=== PATIENT | female | born 1935 | race Caucasian/White ===

== ENCOUNTER 2018-08-04 23:19 | Inpatient (IN) | payer MEDICARE ==
[2018-08-05] MEDS ORDERED: HYDROcodone/Acetaminophen 5/325 mg Tablet ONE (00:56)
[2018-08-05] MEDS ORDERED: Ketorolac Tromethamine 30 MG/ML VIAL ONE (00:56)
[2018-08-05 04:27] VITALS: BMI 17.9
[2018-08-05] MEDS ORDERED: Morphine 2 MG/ML SYRINGE SLOW IVP PRN (04:55)
[2018-08-05] MEDS ORDERED: Ondansetron PF 4 MG/2 ML Vial IVP PRN ×2 (04:56→07:43)
[2018-08-05] MEDS ORDERED: Acetaminophen 325 MG TAB PO PRN (04:56)
[2018-08-05] MEDS: traMADol HCl 50 MG TAB PO PRN (05:29)
[2018-08-05] MEDS ORDERED: Bisacodyl 5 MG TAB PO PRN (07:43)
[2018-08-05] MEDS ORDERED: Senokot S 8.6-50 MG TAB PO PRN ×2 (07:43)
[2018-08-05] MEDS ORDERED: HYDROcodone/Acetaminophen 5/325 mg Tablet PO PRN ×2 (07:43)
[2018-08-05] MEDS ORDERED: Calcium Carbonate 500 MG ChewTAB PO PRN (07:43)
[2018-08-05] MEDS ORDERED: Nitroglycerin 0.4 MG TAB (25 Tab Bottle) SL PRN (07:43)
[2018-08-05] MEDS ORDERED: Ondansetron ODT 4 MG TAB PO PRN (07:43)
[2018-08-05] MEDS ORDERED: Benzonatate 100 MG CAP PO PRN (07:43)
[2018-08-05] MEDS ORDERED: Sodium Chloride 0.65% Nasal 44 ML BOT EA NARE PRN (07:43)
[2018-08-05 08:33] LABS: #Basophils 0.1 thou/uL (0.0-0.2); #Eosinphils 0.2 thou/uL (0.0-0.7); #Lymphocytes 1.2 thou/uL (1.20-3.40); #Monocytes 0.6 thou/uL (0.11-0.59); #Neutrophils 4.4 thou/uL (1.40-6.50); %Basophils 0.9 % (0.0-1.0); %Eosinophils 3.7 % (0.0-10.0); %Lymphocytes 18.1 % (21.0-51.0); %Monocytes 8.9 % (0.0-10.0); %Neutrophils 68.5 % (42.0-75.0); Hemoglobin 13.5 g/dL (12.0-16.0); Mean Corpuscular HGB CONC 33.2 g/dL (32.0-36.0); Mean Corpuscular Hemoglobin 29.2 pg (27.0-31.0); Mean Platelet Volume 9.7 fL (7.4-10.4); Platelet Count 122 thou/uL (130-400); RBC Distribution Width 12.5 % (11.5-14.5); Red Blood Cell (RBC) Count 4.62 mill/uL (4.20-5.40); White Blood Cell (WBC) Count 6.4 thou/uL (4.8-10.8)
[2018-08-05 08:53] LABS: ALT (SGPT) 13 U/L (8-55); AST (SGOT) 20 U/L (5-34); Albumin 3.6 g/dL (3.4-4.8); Alkaline Phosphatase 66 U/L (40-150); Anion Gap 11 mmol/L (10-20); BUN (Urea Nitrogen) 14 mg/dL (9.8-20.1); Bilirubin, Total 0.7 mg/dL (0.2-1.2); Calc. Creatinine Clearance 46 mL/min (70-130); Calcium 8.9 mg/dL (7.8-10.44); Carbon Dioxide 26 mmol/L (23-31); Chloride 106 mmol/L (98-107); Estimated GFR-MDRD 74; Globulin 2.3 g/dL (2.4-3.5); Glucose 81 mg/dL (83-110); Potassium 3.3 mmol/L (3.5-5.1); Protein, Total 5.9 g/dL (6.0-8.3); Sodium 140 mmol/L (136-145)
[2018-08-05] MEDS ORDERED: Amlodipine 5 MG TAB PO SCH (09:00)
[2018-08-05 09:13] LABS: Thyroid Stimulating Hormone 15.6152 uIU/mL (0.35-4.94); Vitamin D, 25 Hydroxy 43.1 ng/ml (> 30.0)
[2018-08-05] MEDS: Famotidine 20 MG TAB PO SCH ×2 (09:32→20:02)
--- NOTE | 2018-08-05 09:40 | CT ---
PRELIMINARY REPORT/[facility]/EMERGENTY AFTER-HOURS PROCEDURE CT Lumbar Spine Without Intravenous Contrast EXAM DATE/TIME: 08/05/2018 1:04 AM CLINICAL HISTORY: 82 years old, female; Pain; Low back pain; Patient HX: FEmerald presents to the ed C/O of back pain form a n injury early this morning. PT reports bending down to belt picker her dog and hearing a pop followed by pain. TECHNIQUE: Axial computed tomography images of the lumbar spine without intravenous contrast. COMPARISON: No relevant prior studies available. FINDINGS: Vertebrae: Acute L3 vertebral body compression fracture with mild loss of vertebral body height. No r etropulsion. No involvement of the posterior elements. Discs/Spinal canal/Neural foramina: L4-L5 disc bulge and ligamentum flavum thickening causing mild ce ntral canal stenosis but no evidence of nerve root impingement. Small L5-S1 disc bulge. Soft tissues: Unremarkable. Kidneys and ureters: Multiple low attenuation lesions in the left kidney do not meet strict CT criter ia for cysts and are indeterminate, potentially hyperdense cysts. Stomach and bowel: Incompletely visualized gaseous distention of the nondependent portions of the bow el. Other findings: 3.6 cm AAA. No rupture. IMPRESSION: Acute L3 vertebral body compression fracture with mild loss of vertebral body height. No retropulsion . No involvement of the posterior elements. Thank you for allowing us to participate in the care of your patient. Dictated and Authenticated by: Jose Martin Hollingsworth MD 08/05/2018 1:37 AM Central Time ([place] & [place]) FINAL REPORT CT LUMBAR SPINE WITHOUT IV CONTRAST: EMERGENCY AFTER HOURS EXAM TIME: 1:05 a.m. DATE: 08/05/2018. FINDINGS: Bone demineralization with some vertical height loss of multiple lower thoracic and upper lumbar vert ebral bodies with an acute compression fracture appearance of L3 with some minute retropulsion superi amira. A 3.6 cm diameter abdominal aortic aneurysm. Several small nodular foci within the kidneys, s tatistically small cysts. POS: [facility]
[2018-08-05] MEDS ORDERED: Potassium Chloride 20 MEQ TAB PO SCH (10:00)
[2018-08-05] MEDS: Enoxaparin Sodium 40 MG/0.4 ML SYRINGE SC SCH (10:20)
[2018-08-05] MEDS: hydrALAZINE 20 MG/ML VIAL SLOW IVP PRN (10:21)
--- NOTE | 2018-08-05 11:59 | HP ---
DATE OF ADMISSION: 08/05/2018 PRIMARY CARE PHYSICIAN: Out of town in [place], [place]. CHIEF COMPLAINT: Back pain after bending down. HISTORY OF PRESENT ILLNESS: Ms. Mcqueen is a pleasant 82-year-old female with past medical history of h ypothyroidism, which she has self-treated with aljv-pww-zvoryix supplements, who presented to the ER with above-mentioned complaint. History is mainly obtained by the patient herself and supplemented b y her granddaughter present at bedside. The patient lives in [place], [place] and is currently visitin g with her family for the . Ms. Mcqueen reports that she is very independent and is very mobile. She still mows her yard, does her groceries and everything, but yesterday while bending down to lease picker her dog, she heard a pop and it was immediately followed by back pain. She otherwise is very healthy and has no recent illnesses. When the pain did not get better, she presented to the emergency room. She denies any incontinence o r any extremity weakness. She denies any headache, fever, chills, cough, rhinorrhea, nausea or vomit ing. No paraesthesias, no difficulty swallowing or difficulty with her speech. Upon presentation to the emergency room, she was hemodynamically stable. She underwent a CT scan of her lumbar spine, which showed a compression fracture in L2. She is admitted to medical floor for pa in control and rehab placement. She was found to be significantly hypertensive in the emergency room upon presentation with a blood p ressure of 208/76. The patient and her granddaughter show me multiple spontaneous bruises, small cuts here and there franci t the patient has sustained by nail or some bruises that have come up spontaneously. They have no wa rmth and redness around them. PAST MEDICAL HISTORY: 1. Hypothyroidism, no treatment so far. 2. Possible undiagnosed essential hypertension. PAST SURGICAL HISTORY: Hysterectomy. PSYCHIATRIC HISTORY: None. SOCIAL HISTORY: No history of drug, tobacco or alcohol abuse. She lives in [place], [place] and is ve ry independent with her ADLs and IADLs. FAMILY HISTORY: No significant family history of stroke, premature coronary artery disease, diabetes or hypertension. ALLERGIES: PENICILLIN, which causes hives. CURRENT MEDICATIONS: [id number] thyroid supplement medication. CODE STATUS: Full code, discussed with the patient. REVIEW OF SYSTEMS: A 12-point review of systems was done. It is negative except for those mentioned in the history and physical. LABORATORY DATA: CBC is unremarkable. Serum chemistries show potassium of 3.3, glucose 81, total pr otein low at 5.9. Her TSH was ordered by me and it is high at 15.61. A 25-hydroxyvitamin D was orde red by myself and it is normal. IMAGING: CT scan of the lumbar spine, bone demineralization with some vertical height loss of multip le lower thoracic and upper lumbar vertebral bodies with acute compression fracture of L3 and a 3.6 c m abdominal aortic aneurysm. PHYSICAL EXAMINATION: VITAL SIGNS: Most recent vital signs, temperature 97.6, pulse of 58-60, blood pressure 196/78, respi rations 16, saturating 92% on room air. GENERAL: No acute distress, awake, alert, oriented x3. HEENT: Mucous membranes are slightly dry. No oropharyngeal exudate or erythema. Head is normocepha lic, atraumatic. Pupils equal and reactive to light and accommodation. Extraocular movement intact. NECK: Supple without any lymphadenopathy, JVD or bruit. CHEST: Clear to auscultation without any wheezing, rales or rhonchi. Rate and rhythm is regular wit hout any murmur, rubs or gallops. ABDOMEN: Soft, nontender, nondistended with positive bowel sounds. EXTREMITIES: Free of any cyanosis, clubbing or edema. NEUROLOGIC: Nonfocal. She has pain with straight leg raise testing. No obvious deformity of the sp ine is noticed. PSYCHIATRIC: Normal affect. SKIN: Thin and fragile with multiple spontaneous bruises. IMPRESSION AND PLAN: 1. Uncontrolled hypertension with hypertensive urgency. I suspect that the patient has underlying e ssential hypertension, which was never diagnosed or treated as the patient has not seen a primary car e physician in multiple years. We will start her on low dose Norvasc and titrate as needed. We will add p.r.n. antihypertensives. At this time, there is no evidence of end organ damage. 2. Acute L3 compression fracture. The patient has been admitted to medical floor for pain control a nd rehab evaluation. OT, PT has also been ordered for the patient. 3. Hypokalemia, likely nutritional, supplement and recheck. 4. Pain management. We will add p.r.n. pain medication and laxatives and stool softeners with that. We will also order TLSO brace for comfort. 5. Hypothyroidism. The patient has not ever been treated for the same. I discussed that and I have started her on levothyroxine 75 mcg daily. She will need to get repeat TSH done in 6 weeks and adju stment of dose as needed. 6. Code status: Full code, discussed with the patient. 7. Add deep venous thrombosis and gastrointestinal prophylaxis. DISPOSITION: Ms. Mcqueen is currently being admitted to the hospital for acute compression fracture, ne eding placement as well as hypertensive urgency. Estimated length of stay is 2-3 midnights. Further management will depend upon her clinical course.
[2018-08-06] MEDS: hydrALAZINE 20 MG/ML VIAL SLOW IVP PRN (00:34)
[2018-08-06] MEDS ORDERED: diphenhydrAMINE 25 MG CAP PO SCH (02:30)
[2018-08-06] MEDS: cloNIDine 0.1 MG TAB PO PRN ×2 (03:53→20:37)
[2018-08-06] MEDS: Acetaminophen 325 MG TAB PO PRN (05:20)
[2018-08-06] MEDS: Levothyroxine Sodium 75 MCG TAB PO SCH (07:25)
[2018-08-06] MEDS ORDERED: Amlodipine 5 MG TAB PO SCH (08:02)
[2018-08-06] MEDS: Famotidine 20 MG TAB PO SCH ×2 (08:50→20:36)
[2018-08-06] MEDS: Lisinopril 10 MG TAB PO SCH (08:50)
[2018-08-06] MEDS: Amlodipine 5 MG TAB PO SCH (08:50)
[2018-08-06] MEDS: Enoxaparin Sodium 40 MG/0.4 ML SYRINGE SC SCH (08:51)
[2018-08-06] MEDS: Escitalopram Oxalate 10 mg Tablet PO SCH (08:51)
[2018-08-06] MEDS: traMADol HCl 50 MG TAB PO PRN ×2 (11:02→20:43)
--- NOTE | 2018-08-06 13:03 | PDOC.PN ---
- Subjective Encounter Start Date: 08/06/18 Encounter Start Time: 13:01 Subjective: had episode of confusion last night -: no new complaints otherwsie.able to work w PT -: pain managed - Objective Resuscitation Status FULL:Full Resuscitation MAR Reviewed: Yes Vital Signs & Weight: Vital Signs (12 hours) Temp Pulse Resp BP BP Pulse Ox 08/06/18 12:00 98.1 F 66 15 143/69 H 93 L 08/06/18 08:50 86 167/78 H 08/06/18 08:29 97.7 F 86 14 167/78 H 93 L 08/06/18 03:53 177/73 H 08/06/18 03:50 98.4 F 100 18 177/70 H 92 L 08/06/18 01:08 164/63 H Weight Admit Weight 111 lb Weight 111 lb 1 oz I&O: 08/05/18 08/06/18 08/07/18 06:59 06:59 06:59 Intake Total 400 400 Balance 400 400 Result Diagrams: 08/05/18 07:55 08/05/18 07:55 Phys Exam - Physical Examination Constitutional: NAD HEENT: PERRLA, moist MMs, sclera anicteric, oral pharynx no lesions Neck: no nodes, no JVD, supple, full ROM Respiratory: no wheezing, no rales, no rhonchi, clear to auscultation bilateral Cardiovascular: RRR, no significant murmur, no rub Gastrointestinal: soft, non-tender, no distention, positive bowel sounds Musculoskeletal: no edema, pulses present Neurological: non-focal, normal sensation, moves all 4 limbs Psychiatric: normal affect, A&O x 3 Skin: no rash Dx/Plan (1) Lumbar compression fracture Code(s): S32.000A - WEDGE COMPRESSION FRACTURE OF UNSP LUMBAR VERTEBRA, INIT Status: Acute Qualifiers: Lumbar vertebra fracture level: L3 Fracture type: closed (2) Uncontrolled hypertension Code(s): I10 - ESSENTIAL (PRIMARY) HYPERTENSION Status: Acute Comment: better controlled now (3) Intractable back pain Code(s): M54.9 - DORSALGIA, UNSPECIFIED Status: Acute (4) Hypothyroid Code(s): E03.9 - HYPOTHYROIDISM, UNSPECIFIED Status: Chronic (5) Protein-calorie malnutrition, severe Code(s): E43 - UNSPECIFIED SEVERE PROTEIN-CALORIE MALNUTRITION Status: Chronic - Plan plan discussed w/ family, DVT proph w/SCDs cont pain control.rehab eval. -: BP better controlled.restart Lisinopril and cont amlodipine at 5.titrate -: add melatonin qhs.cont lexapro -: Awaiting rehab * . Review of Systems - Review of Systems Constitutional: negative: fever, chills, sweats, weakness, malaise, other Respiratory: negative: Cough, Dry, Shortness of Breath, Hemoptysis, SOB with Excertion, Pleuritic Pain, Sputum, Wheezing Cardiovascular: negative: chest pain, palpitations, orthopnea, paroxysmal nocturnal dyspnea, edema, light headedness, other Gastrointestinal: negative: Nausea, Vomiting, Abdominal Pain, Diarrhea, Constipation, Melena, Hematochezia, Other Genitourinary: negative: Dysuria, Frequency, Incontinence, Hematuria, Retention , Other Musculoskeletal: negative: Neck Pain, Shoulder Pain, Arm Pain, Back Pain, Hand Pain, Leg Pain, Foot Pain, Other Skin: negative: Rash, Lesions, Kyrie, Bruising, Other Neurological: negative: Weakness, Numbness, Incoordination, Change in Speech, Confusion, Seizures, Other - Medications/Allergies Allergies/Adverse Reactions: Allergies Allergy/AdvReac Type Severity Reaction Status Date / Time hydrocodone [From [place]] Allergy Verified 08/06/18 14:28 Penicillins Allergy Verified 08/06/18 14:28 Medications: Current Medications Acetaminophen (Tylenol) 650 mg PO Q4H PRN PRN Reason: Headache/Fever/Mild Pain (1-3) Last Admin: 08/06/18 05:20 Dose: 650 mg Hydrocodone Bitart/Acetaminophen ([place] 5/325) 1 tab PO Q4H PRN PRN Reason: Moderate Pain (4-6) Hydrocodone Bitart/Acetaminophen ([place] 5/325) 2 tab PO Q4H PRN PRN Reason: Severe Pain (7-10) Last Admin: 08/05/18 20:02 Dose: 2 tab Amlodipine Besylate (Norvasc) 5 mg PO DAILY [facility] Last Admin: 08/06/18 08:50 Dose: 5 mg Benzonatate (Tessalon) 100 mg PO Q6H PRN PRN Reason: Cough Bisacodyl (Dulcolax) 10 mg PO DAILYPRN PRN PRN Reason: Constipation Calcium Carbonate (Tums) 1,000 mg PO Q4H PRN PRN Reason: Heartburn or Indigestion Clonidine (Catapres) 0.1 mg PO Q4H PRN PRN Reason: SBP>160 Last Admin: 08/06/18 03:53 Dose: 0.1 mg Enoxaparin Sodium (Lovenox) 40 mg SC 0900 [facility] Last Admin: 08/06/18 08:51 Dose: 40 mg Escitalopram Oxalate (Lexapro) 10 mg PO DAILY [facility] Last Admin: 08/06/18 08:51 Dose: 10 mg Famotidine (Pepcid) 20 mg PO BID [facility] Last Admin: 08/06/18 08:50 Dose: 20 mg Hydralazine HCl (Apresoline) 10 mg SLOW IVP Q4H PRN PRN Reason: SBP>170 Last Admin: 08/06/18 00:34 Dose: 10 mg Levothyroxine Sodium (Synthroid) 75 mcg PO 0600 [facility] Last Admin: 08/06/18 07:25 Dose: Not Given Lisinopril (Zestril) 10 mg PO DAILY [facility] Last Admin: 08/06/18 08:50 Dose: 10 mg Morphine Sulfate (Morphine) 2 mg SLOW IVP Q4H PRN PRN Reason: .BREAKTHROUGH PAIN Nitroglycerin (Nitrostat) 0.4 mg SL Q5MIN PRN PRN Reason: Chest Pain Ondansetron HCl (Zofran Odt) 4 mg PO Q6H PRN PRN Reason: Nausea/Vomiting Ondansetron HCl (Zofran) 4 mg IVP Q6H PRN PRN Reason: Nausea/Vomiting Senna/Docusate Sodium (Senokot S) 2 tab PO BID PRN PRN Reason: Constipation Sodium Chloride ([place] Nasal [place] 0.65%) 0 ml EA NARE QIDPRN PRN PRN Reason: Nasal Congestion Tramadol HCl (Ultram) 50 mg PO Q6H PRN PRN Reason: Pain 4-6 Last Admin: 08/06/18 11:02 Dose: 50 mg
[2018-08-07] MEDS: Acetaminophen 325 MG TAB PO PRN ×3 (00:19→21:52)
[2018-08-07] MEDS: cloNIDine 0.1 MG TAB PO PRN (03:44)
[2018-08-07] MEDS: Levothyroxine Sodium 75 MCG TAB PO SCH (05:32)
[2018-08-07] MEDS: Famotidine 20 MG TAB PO SCH ×2 (08:42→20:16)
[2018-08-07] MEDS: Enoxaparin Sodium 40 MG/0.4 ML SYRINGE SC SCH (08:42)
[2018-08-07] MEDS: Amlodipine 5 MG TAB PO SCH (08:43)
[2018-08-07] MEDS: Escitalopram Oxalate 10 mg Tablet PO SCH (08:43)
[2018-08-07] MEDS: Lisinopril 10 MG TAB PO SCH (08:43)
--- NOTE | 2018-08-07 10:54 | PDOC.PN ---
- Subjective Encounter Start Date: 08/07/18 Encounter Start Time: 10:53 Subjective: pt asleep and care discussed w Grand daughter at bedside -: slept well but ate poorly yesterday - Objective Resuscitation Status FULL:Full Resuscitation MAR Reviewed: Yes Vital Signs & Weight: Vital Signs (12 hours) Temp Pulse Resp BP BP Pulse Ox 08/07/18 08:43 53 L 148/61 H 08/07/18 07:32 98.5 F 53 L 14 148/61 H 92 L 08/07/18 05:34 119/58 L 08/07/18 04:16 98.1 F 67 18 186/76 H 91 L 08/07/18 03:44 186/76 H 08/07/18 00:45 159/76 H 08/06/18 23:26 98.2 F 70 18 168/66 H 92 L Weight Admit Weight 111 lb Weight 111 lb 1 oz I&O: 08/06/18 08/07/18 08/08/18 06:59 06:59 06:59 Intake Total 1150 Balance 1150 Result Diagrams: 08/05/18 07:55 08/05/18 07:55 Phys Exam - Physical Examination Constitutional: NAD Neck: no nodes, no JVD Respiratory: no wheezing, no rales, no rhonchi Cardiovascular: RRR, no significant murmur Gastrointestinal: soft, no distention, positive bowel sounds Musculoskeletal: no edema, pulses present Skin: no rash Dx/Plan (1) Lumbar compression fracture Code(s): S32.000A - WEDGE COMPRESSION FRACTURE OF UNSP LUMBAR VERTEBRA, INIT Status: Acute Qualifiers: Lumbar vertebra fracture level: L3 Fracture type: closed (2) Uncontrolled hypertension Code(s): I10 - ESSENTIAL (PRIMARY) HYPERTENSION Status: Acute Comment: better controlled now (3) Intractable back pain Code(s): M54.9 - DORSALGIA, UNSPECIFIED Status: Acute (4) Hypothyroid Code(s): E03.9 - HYPOTHYROIDISM, UNSPECIFIED Status: Chronic (5) Protein-calorie malnutrition, severe Code(s): E43 - UNSPECIFIED SEVERE PROTEIN-CALORIE MALNUTRITION Status: Chronic - Plan plan discussed w/ family, PT/OT, DVT proph w/lovenox, DVT proph w/SCDs Awaiting rehab eval -: DC when accpeted -: BP better controlled.cont Lisinopril.amlodipine -: avoid narcotics and sedatives.underlying mild dementia per family -: HD stable.add ensure TID * . Review of Systems - Review of Systems Other: limited as pt asleep - Medications/Allergies Allergies/Adverse Reactions: Allergies Allergy/AdvReac Type Severity Reaction Status Date / Time hydrocodone [From [place]] Allergy Verified 08/06/18 14:28 Penicillins Allergy Verified 08/06/18 14:28 Medications: Current Medications Acetaminophen (Tylenol) 650 mg PO Q4H PRN PRN Reason: Headache/Fever/Mild Pain (1-3) Last Admin: 08/07/18 00:19 Dose: 650 mg Amlodipine Besylate (Norvasc) 5 mg PO DAILY [facility] Last Admin: 08/07/18 08:43 Dose: 5 mg Benzonatate (Tessalon) 100 mg PO Q6H PRN PRN Reason: Cough Bisacodyl (Dulcolax) 10 mg PO DAILYPRN PRN PRN Reason: Constipation Calcium Carbonate (Tums) 1,000 mg PO Q4H PRN PRN Reason: Heartburn or Indigestion Clonidine (Catapres) 0.1 mg PO Q4H PRN PRN Reason: SBP>160 Last Admin: 08/07/18 03:44 Dose: 0.1 mg Enoxaparin Sodium (Lovenox) 40 mg SC 0900 [facility] Last Admin: 08/07/18 08:42 Dose: 40 mg Escitalopram Oxalate (Lexapro) 10 mg PO DAILY [facility] Last Admin: 08/07/18 08:43 Dose: 10 mg Famotidine (Pepcid) 20 mg PO BID [facility] Last Admin: 08/07/18 08:42 Dose: 20 mg Hydralazine HCl (Apresoline) 10 mg SLOW IVP Q4H PRN PRN Reason: SBP>170 Last Admin: 08/06/18 00:34 Dose: 10 mg Levothyroxine Sodium (Synthroid) 75 mcg PO 0600 [facility] Last Admin: 08/07/18 05:32 Dose: 75 mcg Lisinopril (Zestril) 10 mg PO DAILY [facility] Last Admin: 08/07/18 08:43 Dose: 10 mg Morphine Sulfate (Morphine) 2 mg SLOW IVP Q4H PRN PRN Reason: .BREAKTHROUGH PAIN Nitroglycerin (Nitrostat) 0.4 mg SL Q5MIN PRN PRN Reason: Chest Pain Ondansetron HCl (Zofran Odt) 4 mg PO Q6H PRN PRN Reason: Nausea/Vomiting Ondansetron HCl (Zofran) 4 mg IVP Q6H PRN PRN Reason: Nausea/Vomiting Senna/Docusate Sodium (Senokot S) 2 tab PO BID PRN PRN Reason: Constipation Sodium Chloride ([place] Nasal [place] 0.65%) 0 ml EA NARE QIDPRN PRN PRN Reason: Nasal Congestion Tramadol HCl (Ultram) 50 mg PO Q6H PRN PRN Reason: Pain 4-6 Last Admin: 08/06/18 20:43 Dose: 50 mg
[2018-08-08] MEDS: Acetaminophen 325 MG TAB PO PRN (05:32)
[2018-08-08] MEDS: Levothyroxine Sodium 75 MCG TAB PO SCH (05:33)
[2018-08-08] MEDS ORDERED: cloNIDine 0.1 MG TAB PO PRN (09:02)
[2018-08-08] MEDS: Enoxaparin Sodium 40 MG/0.4 ML SYRINGE SC SCH (09:05)
[2018-08-08] MEDS: Amlodipine 5 MG TAB PO SCH (09:05)
[2018-08-08] MEDS: Lisinopril 10 MG TAB PO SCH (09:05)
[2018-08-08] MEDS: Famotidine 20 MG TAB PO SCH ×2 (09:06→21:53)
[2018-08-08] MEDS: Escitalopram Oxalate 10 mg Tablet PO SCH (09:06)
--- NOTE | 2018-08-08 14:44 | PDOC.PN ---
- Subjective Encounter Start Date: 08/08/18 Encounter Start Time: 14:43 Subjective: feels well. on mary off confusion per grand daughter -: landry 2 ensures yesterday -: more awake today.no new compliants/ON events - Objective 08/08/18 12:36 Resuscitation Status Routine Resuscitation Status: FULL: Full Resuscitation Discussed with: Per previous order MAR Reviewed: Yes Vital Signs & Weight: Vital Signs (12 hours) Temp Pulse Resp BP BP Pulse Ox 08/08/18 11:15 98.4 F 83 18 152/63 H 95 08/08/18 09:05 72 159/68 H 08/08/18 07:30 97.3 F L 72 18 159/68 H 92 L 08/08/18 04:00 97.7 F 74 22 H 158/65 H 92 L Weight Admit Weight 111 lb Weight 111 lb 1 oz I&O: 08/07/18 08/08/18 08/09/18 06:59 06:59 06:59 Intake Total 1150 1700 Balance 1150 1700 Result Diagrams: 08/05/18 07:55 08/05/18 07:55 Phys Exam - Physical Examination Constitutional: NAD HEENT: PERRLA, moist MMs, sclera anicteric, oral pharynx no lesions Neck: no nodes, no JVD, supple, full ROM Respiratory: no wheezing, no rales, no rhonchi, clear to auscultation bilateral Cardiovascular: RRR, no significant murmur, no rub Gastrointestinal: soft, non-tender, no distention, positive bowel sounds Musculoskeletal: no edema, pulses present Neurological: non-focal, normal sensation, moves all 4 limbs Psychiatric: normal affect, A&O x 3 forgetful Skin: no rash Dx/Plan (1) Lumbar compression fracture Code(s): S32.000A - WEDGE COMPRESSION FRACTURE OF UNSP LUMBAR VERTEBRA, INIT Status: Acute Qualifiers: Lumbar vertebra fracture level: L3 Fracture type: closed (2) Uncontrolled hypertension Code(s): I10 - ESSENTIAL (PRIMARY) HYPERTENSION Status: Acute Comment: better controlled now (3) Intractable back pain Code(s): M54.9 - DORSALGIA, UNSPECIFIED Status: Acute (4) Hypothyroid Code(s): E03.9 - HYPOTHYROIDISM, UNSPECIFIED Status: Chronic (5) Protein-calorie malnutrition, severe Code(s): E43 - UNSPECIFIED SEVERE PROTEIN-CALORIE MALNUTRITION Status: Chronic - Plan plan discussed w/ family, PT/OT, DVT proph w/SCDs awaiting Acceptance to rehab. ready clinically -: BP better controlled. cont current meds as below -: HD stable. -: OT/PT.pain controlled * . Review of Systems - Review of Systems Constitutional: negative: fever, chills, sweats, weakness, malaise, other Respiratory: negative: Cough, Dry, Shortness of Breath, Hemoptysis, SOB with Excertion, Pleuritic Pain, Sputum, Wheezing Cardiovascular: negative: chest pain, palpitations, orthopnea, paroxysmal nocturnal dyspnea, edema, light headedness, other Gastrointestinal: negative: Nausea, Vomiting, Abdominal Pain, Diarrhea, Constipation, Melena, Hematochezia, Other Genitourinary: negative: Dysuria, Frequency, Incontinence, Hematuria, Retention , Other Musculoskeletal: Back Pain Skin: negative: Rash, Lesions, Kyrie, Bruising, Other Neurological: negative: Weakness, Numbness, Incoordination, Change in Speech, Confusion, Seizures, Other - Medications/Allergies Allergies/Adverse Reactions: Allergies Allergy/AdvReac Type Severity Reaction Status Date / Time hydrocodone [From [place]] Allergy Verified 08/06/18 14:28 Penicillins Allergy Verified 08/06/18 14:28 Medications: Current Medications Acetaminophen (Tylenol) 650 mg PO Q4H PRN PRN Reason: Headache/Fever/Mild Pain (1-3) Last Admin: 08/08/18 05:32 Dose: 650 mg Amlodipine Besylate (Norvasc) 5 mg PO DAILY [facility] Last Admin: 08/08/18 09:05 Dose: 5 mg Benzonatate (Tessalon) 100 mg PO Q6H PRN PRN Reason: Cough Bisacodyl (Dulcolax) 10 mg PO DAILYPRN PRN PRN Reason: Constipation Calcium Carbonate (Tums) 1,000 mg PO Q4H PRN PRN Reason: Heartburn or Indigestion Clonidine (Catapres) 0.1 mg PO Q4H PRN PRN Reason: SBP>150 Enoxaparin Sodium (Lovenox) 40 mg SC 0900 [facility] Last Admin: 08/08/18 09:05 Dose: 40 mg Escitalopram Oxalate (Lexapro) 10 mg PO DAILY [facility] Last Admin: 08/08/18 09:06 Dose: 10 mg Famotidine (Pepcid) 20 mg PO BID [facility] Last Admin: 08/08/18 09:06 Dose: 20 mg Hydralazine HCl (Apresoline) 10 mg SLOW IVP Q4H PRN PRN Reason: SBP>170 Last Admin: 08/06/18 00:34 Dose: 10 mg Levothyroxine Sodium (Synthroid) 75 mcg PO 0600 [facility] Last Admin: 08/08/18 05:33 Dose: 75 mcg Lisinopril (Zestril) 10 mg PO DAILY [facility] Last Admin: 08/08/18 09:05 Dose: 10 mg Morphine Sulfate (Morphine) 2 mg SLOW IVP Q4H PRN PRN Reason: .BREAKTHROUGH PAIN Nitroglycerin (Nitrostat) 0.4 mg SL Q5MIN PRN PRN Reason: Chest Pain Ondansetron HCl (Zofran Odt) 4 mg PO Q6H PRN PRN Reason: Nausea/Vomiting Ondansetron HCl (Zofran) 4 mg IVP Q6H PRN PRN Reason: Nausea/Vomiting Senna/Docusate Sodium (Senokot S) 2 tab PO BID PRN PRN Reason: Constipation Last Admin: 08/08/18 10:13 Dose: 2 tab Sodium Chloride ([place] Nasal [place] 0.65%) 0 ml EA NARE QIDPRN PRN PRN Reason: Nasal Congestion Tramadol HCl (Ultram) 50 mg PO Q6H PRN PRN Reason: Pain 4-6 Last Admin: 08/06/18 20:43 Dose: 50 mg
--- NOTE | 2018-08-08 15:31 | PQF ---
CLINICAL DOCUMENTATION IMPROVEMENT CLARIFICATION FORM: ICD-10 Updated PLEASE DO AN ADDENDUM TO THE PROGRESS NOTE WITH ANY DOCUMENTATION UPDATES OR ADDITIONS AND CARRY THROUGH TO DC SUMMARY. THANK YOU. Date: 08/08/18 ATTN: DR. MANRIQUE Please exercise your independent, professional judgment in responding to the clarification form. Clinical indicators are provided on the bottom of this form for your review Please check appropriate box(s): [ ] Protein Calorie Malnutrition: [ ] Mild [ ] Moderate [X ] Severe [ ] Other Malnutrition (please specify) __ [ ] Underweight without malnutrition [ ] Cachexia [ ] Other diagnosis [ ] Unable to determine In addition, please specify: Present on Admission (POA): [X ] Yes [ ] No [ ] Unable to determine CLINICAL INDICATORS - SIGNS / SYMPTOMS / LABS DIETARY NOTE 08/05: "SEVERE TEMPORAL WASTING OBSERVED WITH MINIMAL FAT" "11% WEIGHT LOSS OVER A FEW MONTHS WITH SEVERE MUSCLE WASTING OBSERVED AND MINIMAL FAT STORES SUGGESTIVE OF SEVERE MALNUTRITION." BMI 17.9 RISKS: ADVANCED AGE L3 COMPRESSION FRACTURE TREATMENT: DIETARY CONSULT NUTRITIONAL SUPPLEMENTS Moderate Malnutrition (in acute illness) Energy Intake: <75% of estimated energy requirement for > 7 days Weight Loss: 1-2%/1 week; 5%/ 1 month; 7.5%/3 months Other: mild body fat loss; mild muscle mass loss; mild fluid accumulation; Severe Malnutrition (in acute illness) Energy Intake: < 50% of estimated energy requirement for > 5 days Weight Loss: >1-2%/1 week; >5%/1 month; >7.5%/3 months Other: moderate body fat loss; moderate muscle mass loss; moderate- severe fluid accumulation; measurably reduced insulation professional strength Moderate Malnutrition (in chronic illness Energy Intake: <75% of estimated energy requirement for >1 month Weight Loss: 5%/1 month; 7.5%/3 months; 10%/6 months; 20%/1 year Other: mild body fat loss; mild muscle mass loss; mild fluid accumulation Severe Malnutrition (in chronic illness) Energy Intake: <75% of estimated energy requirement for >1 month Weight Loss: >5%/1 month; >7.5%/3 months; >10%/6 months; >20%/1 year Other: severe body fat loss; severe muscle mass loss; severe fluid accumulation ; measurably reduced insulation professional strength (This form is maintained as a part of the permanent medical record) 2014 [employer] All Rights Reserved [email or web address] Office: [phone] [facility]
[2018-08-09] MEDS: Levothyroxine Sodium 75 MCG TAB PO SCH (05:13)
[2018-08-09] MEDS: Enoxaparin Sodium 40 MG/0.4 ML SYRINGE SC SCH (09:38)
[2018-08-09] MEDS: Famotidine 20 MG TAB PO SCH ×2 (09:38→20:19)
[2018-08-09] MEDS: Escitalopram Oxalate 10 mg Tablet PO SCH (09:38)
[2018-08-09] MEDS: Lisinopril 10 MG TAB PO SCH (09:38)
[2018-08-09] MEDS: Amlodipine 5 MG TAB PO SCH (09:38)
[2018-08-09] MEDS: traMADol HCl 50 MG TAB PO PRN (12:16)
--- NOTE | 2018-08-09 14:45 | PDOC.PN ---
- Subjective Encounter Start Date: 08/09/18 Encounter Start Time: 14:43 Subjective: feels well. ate better and slept peacefully all night long - Objective Resuscitation Status - Order Detail: 08/08/18 12:36 Resuscitation Status Routine Resuscitation Status: FULL: Full Resuscitation Discussed with: Per previous order MAR Reviewed: Yes Vital Signs & Weight: Vital Signs (12 hours) Temp Pulse Resp BP BP Pulse Ox 08/09/18 09:45 90 L 08/09/18 09:38 59 L 127/61 08/09/18 07:15 98.1 F 61 16 127/61 90 L 08/09/18 04:15 97.7 F 63 16 127/71 91 L Weight Admit Weight 111 lb Weight 111 lb 1 oz I&O: 08/08/18 08/09/18 08/10/18 06:59 06:59 06:59 Intake Total 1700 1500 Balance 1700 1500 Result Diagrams: 08/05/18 07:55 08/05/18 07:55 Additional Labs: Accuchecks 08/09/18 05:21 POC Glucose 94 Phys Exam - Physical Examination Constitutional: NAD HEENT: PERRLA, moist MMs, sclera anicteric, oral pharynx no lesions Neck: no nodes, no JVD, supple, full ROM Respiratory: no wheezing, no rales, no rhonchi, clear to auscultation bilateral Cardiovascular: RRR, no significant murmur, no rub Gastrointestinal: soft, non-tender, no distention, positive bowel sounds Musculoskeletal: no edema, pulses present Neurological: non-focal, normal sensation, moves all 4 limbs Psychiatric: normal affect, A&O x 3 Skin: no rash Dx/Plan (1) Lumbar compression fracture Code(s): S32.000A - WEDGE COMPRESSION FRACTURE OF UNSP LUMBAR VERTEBRA, INIT Status: Acute Qualifiers: Lumbar vertebra fracture level: L3 Fracture type: closed (2) Uncontrolled hypertension Code(s): I10 - ESSENTIAL (PRIMARY) HYPERTENSION Status: Acute Comment: better controlled now (3) Intractable back pain Code(s): M54.9 - DORSALGIA, UNSPECIFIED Status: Acute (4) Hypothyroid Code(s): E03.9 - HYPOTHYROIDISM, UNSPECIFIED Status: Chronic (5) Protein-calorie malnutrition, severe Code(s): E43 - UNSPECIFIED SEVERE PROTEIN-CALORIE MALNUTRITION Status: Chronic - Plan plan discussed w/ family, DVT proph w/SCDs awaiting rehab placement.pain very well controlled -: BP controlled. -: OK to DC when accpeted * . Review of Systems - Review of Systems Constitutional: negative: fever, chills, sweats, weakness, malaise, other Respiratory: negative: Cough, Dry, Shortness of Breath, Hemoptysis, SOB with Excertion, Pleuritic Pain, Sputum, Wheezing Cardiovascular: negative: chest pain, palpitations, orthopnea, paroxysmal nocturnal dyspnea, edema, light headedness, other Gastrointestinal: negative: Nausea, Vomiting, Abdominal Pain, Diarrhea, Constipation, Melena, Hematochezia, Other Genitourinary: negative: Dysuria, Frequency, Incontinence, Hematuria, Retention , Other Musculoskeletal: negative: Neck Pain, Shoulder Pain, Arm Pain, Back Pain, Hand Pain, Leg Pain, Foot Pain, Other Neurological: negative: Weakness, Numbness, Incoordination, Change in Speech, Confusion, Seizures, Other - Medications/Allergies Allergies/Adverse Reactions: Allergies Allergy/AdvReac Type Severity Reaction Status Date / Time hydrocodone [From [place]] Allergy Verified 08/06/18 14:28 Penicillins Allergy Verified 08/06/18 14:28 Medications: Current Medications Acetaminophen (Tylenol) 650 mg PO Q4H PRN PRN Reason: Headache/Fever/Mild Pain (1-3) Last Admin: 08/08/18 05:32 Dose: 650 mg Amlodipine Besylate (Norvasc) 5 mg PO DAILY [facility] Last Admin: 08/09/18 09:38 Dose: 5 mg Benzonatate (Tessalon) 100 mg PO Q6H PRN PRN Reason: Cough Bisacodyl (Dulcolax) 10 mg PO DAILYPRN PRN PRN Reason: Constipation Calcium Carbonate (Tums) 1,000 mg PO Q4H PRN PRN Reason: Heartburn or Indigestion Clonidine (Catapres) 0.1 mg PO Q4H PRN PRN Reason: SBP>150 Last Admin: 08/09/18 01:35 Dose: 0.1 mg Enoxaparin Sodium (Lovenox) 40 mg SC 0900 [facility] Last Admin: 08/09/18 09:38 Dose: 40 mg Escitalopram Oxalate (Lexapro) 10 mg PO DAILY [facility] Last Admin: 08/09/18 09:38 Dose: 10 mg Famotidine (Pepcid) 20 mg PO BID [facility] Last Admin: 08/09/18 09:38 Dose: 20 mg Hydralazine HCl (Apresoline) 10 mg SLOW IVP Q4H PRN PRN Reason: SBP>170 Last Admin: 08/06/18 00:34 Dose: 10 mg Levothyroxine Sodium (Synthroid) 75 mcg PO 0600 [facility] Last Admin: 08/09/18 05:13 Dose: 75 mcg Lisinopril (Zestril) 10 mg PO DAILY [facility] Last Admin: 08/09/18 09:38 Dose: 10 mg Morphine Sulfate (Morphine) 2 mg SLOW IVP Q4H PRN PRN Reason: .BREAKTHROUGH PAIN Nitroglycerin (Nitrostat) 0.4 mg SL Q5MIN PRN PRN Reason: Chest Pain Ondansetron HCl (Zofran Odt) 4 mg PO Q6H PRN PRN Reason: Nausea/Vomiting Ondansetron HCl (Zofran) 4 mg IVP Q6H PRN PRN Reason: Nausea/Vomiting Senna/Docusate Sodium (Senokot S) 2 tab PO BID PRN PRN Reason: Constipation Last Admin: 08/08/18 10:13 Dose: 2 tab Sodium Chloride (Loí[place] Nasal [place] 0.65%) 0 ml EA NARE QIDPRN PRN PRN Reason: Nasal Congestion Tramadol HCl (Ultram) 50 mg PO Q6H PRN PRN Reason: Pain 4-6 Last Admin: 08/09/18 12:16 Dose: 50 mg
[2018-08-09] MEDS: Acetaminophen 325 MG TAB PO PRN (20:33)
[2018-08-10] MEDS: Levothyroxine Sodium 75 MCG TAB PO SCH (05:15)
[2018-08-10] MEDS ORDERED: Melatonin 3 MG TAB PO PRN (09:23)
[2018-08-10] MEDS: Famotidine 20 MG TAB PO SCH (09:24)
[2018-08-10] MEDS: Escitalopram Oxalate 10 mg Tablet PO SCH (09:24)
[2018-08-10] MEDS: Enoxaparin Sodium 40 MG/0.4 ML SYRINGE SC SCH ×2 (09:24→09:32)
[2018-08-10] MEDS: Lisinopril 10 MG TAB PO SCH (09:24)
[2018-08-10] MEDS: Amlodipine 5 MG TAB PO SCH (09:24)
[2018-08-10 12:10] VITALS: BP 145/56; TEMP 97.9
[2018-08-10] MEDS: Acetaminophen 325 MG TAB PO PRN (15:08)
--- NOTE | 2018-08-11 11:49 | DIS ---
DATE OF ADMISSION: 08/05/2018 DATE OF DISCHARGE: 08/10/2018 CONDITION AT THE TIME OF DISCHARGE: Stable and improved. DISCHARGE DISPOSITION: Home. DISCHARGE DIAGNOSES: 1. Stress fracture of L3 vertebrae. 2. Uncontrolled hypertension, improved. 3. Intractable back pain secondary to stress fracture of L3 vertebrae, improved. 4. Hypothyroidism. 5. Severe protein-calorie malnutrition. PRIMARY CARE PHYSICIAN: Out of town in [place], [place]. DISCHARGE MEDICATIONS: Resume home medications that are as follow: 1. Lisinopril 10 mg daily. 2. Lexapro 10 mg daily. New medications: 1. Synthroid 75 mcg daily. 2. Amlodipine 5 mg daily. INHOUSE CONSULTATIONS: None. PROCEDURES DONE AT THE HOSPITAL: Lumbar spinal CT, which shows bone demineralization with some vertical height loss and multiple lower thoracic, and upper lumbar vertebral bodies with acute compression fracture of L3. A 3.6 cm abdominal aortic aneurysm is also noticed. HISTORY OF PRESENTING ILLNESS: Ms. Mcqueen is a very pleasant 82-year-old female, who is visiting her family for Thanksgiving Break when she sustained an injury picking up her dog and presented to the ER with severe back pain. She was found to have L3 fracture in the CT scan and was admitted for pain control and possible rehab options. She was found to have hypertensive urgency upon presentation with blood pressure as high as 196/78. Please see admission history and physical for further details. HOSPITAL COURSE: The patient was restarting on blood pressure medication and Norvasc was added along with p.r.n., antihypertensives. With the better pain control, her blood pressure improved much significantly. She was found to have significant hypothyroidism and her TSH was as high as 15.61. Her 25-hydroxy vitamin D level was adequate at 43. She was started on levothyroxine and OT/PT was consulted. She actually worked very well with them and by the time of discharge, it was seen that she would possibly not need rehab. We did try rehab placement at the request of the family, but she was declined by her insurance as she did not meet criteria. I have actually done [id number] review for possible help with rehab placement, but I agree that the patient does not meet criteria for the rehab. At this time, family has been told and given option for home health. school operations manager will help setup home health in [place], [place]. The patient has been walking in the hallways with the help of the physical therapist without any walker. She is not using any pain medications in the hospital. I think she is safe to go home with home health as she also lives with her adult son in [place], [place]. She was seen and examined prior to discharge. PHYSICAL EXAMINATION: Her physical examination this morning: VITAL SIGNS: Temperature 97.9, heart rate 96, respirations 18, saturating 92% on room air, and blood pressure 145/56. GENERAL: No acute distress. Sitting up in the chair. CHEST: Clear to auscultation bilaterally. HEART: Rate and rhythm is regular. ABDOMEN: Soft. Nontender. Nondistended. Discharge plan was discussed with the patient's granddaughter by the continuous pillowcase cutter as she was not in the room twice when I checked and the patient does have some dementia, but she understood the discharge plan herself as well. Total time spent in the discharge including making the phone for the [id number] review 32 minutes. Job ID: [id number]
== END 2018-08-10 15:30 | disposition home health service (06) | DRG 542 ==
LOC: ERS 23:19 → SURG A 08-05 02:00
PROVIDERS: ADMIT Hospitalist; ATTEND Hospitalist
DX: M48.46XA Fatigue fracture of vertebra, lumbar region, initial encounter for fracture (principal); E43 Unspecified severe protein-calorie malnutrition; Z68.1 Body mass index [BMI] 19.9 or less, adult; E03.9 Hypothyroidism, unspecified; I16.0 Hypertensive urgency; I10 Essential (primary) hypertension; E87.6 Hypokalemia; F03.90 Unspecified dementia, unspecified severity, without behavioral disturbance, psychotic disturbance, mood disturbance, and anxiety; Z88.0 Allergy status to penicillin; Z79.899 Other long term (current) drug therapy
CPT/HCPCS: 36415; 36416; 72131; 80053; 82306; 84443; 85025; 96372; G8978-GP-CL; G8979-GP-CI; G8987-GO-CL; G8988-GO-CJ; J0360; J1650; J1885